=== PATIENT | female | born 1930 | race Caucasian/White ===

== ENCOUNTER 2019-09-09 11:05 | Inpatient (IN) | payer OTHER, MEDICAID ==
[~2019-09-09] VITALS: Ht 160 cm; Wt 67.8 kg
[2019-09-09 11:59] LABS: BASOPHILS % 0.4 % (0.0-2.0); EOSINOPHILS % 0.5 % (0.0-5.0); HEMOGLOBIN. 9.3 g/dL (12.0-16.0); LYMPHOCYTES % 8.2 % (20.0-50.0); MEAN CORPUSCULAR HEMOGLOBIN 29.8 pg (28.0-32.0); MEAN CORPUSCULAR VOLUME 92.4 fL (81.0-99.0); MONOCYTES % 6.9 % (2.0-8.0); PLATELET 453 x1000/uL (130-400); RED BLOOD CELL COUNT 3.14 mill/uL (4.2-5.4); RED CELL DISTRIBUTION WIDTH 19.5 % (11.6-14.6)
[2019-09-09 12:00] LABS: CLARITY URINE CLEAR (CLEAR); COLOR URINE YELLOW (YELLOW); KETONES URINE NEGATIVE (NEGATIVE); LEUKOCYTE ESTERASE URINE NEGATIVE (NEGATIVE); NITRITE URINE NEGATIVE (NEGATIVE); OCCULT BLOOD URINE NEGATIVE (NEGATIVE); PROTEIN URINE NEGATIVE (NEGATIVE); SPECIFIC GRAVITY URINE 1.029 (1.005-1.030); UROBILINOGEN URINE 0.2 E.U./dL (0.2-1.0)
[2019-09-09 12:04] LABS: CHLORIDE 107 mEq/L (98-107)
[2019-09-09 12:12] LABS: PHOSPHORUS 2.2 mg/dL (2.5-4.9)
[2019-09-09 12:15] LABS: BETA HYDROXYBUTYRATE 0.2 mMol/L (0.0-0.3)
[2019-09-09 12:19] LABS: BG BASE EXCESS -1.7 mmol/L (-2.0-2.0); BG CARBOXYHEMOGLOBIN 0.3 % (0.5-1.5); BG DEOXYHEMOGLOBIN 6.4 % (0.0-5.0); BG FRACTION INSPIRED OXYGEN 21; BG HCO3 ACT 20.7 mmol/L (22.0-26.0); BG METHEMOGLOBIN 0.1 % (0.0-1.5); BG OXYGEN SATURATION 93.6 % (92.0-98.5); BG OXYHEMOGLOBIN 93.2 % (94.0-97.0); BG PH 7.502 (7.350-7.450); BG PO2 68.3 mmHg (75.0-100.0); BG SAMPLE SITE RIGHT BRACHIAL; BG TOTAL HEMOGLOBIN 9.5 g/dL (12.0-18.0); BG VENT MODE ROOM AIR
[2019-09-09] MEDS ORDERED: INSULIN REGULAR (HUMULIN R) 300UNITS/3ML SUBCUT ONE (13:00)
[2019-09-09] MEDS ORDERED: SODIUM CHLORIDE 0.9% 1,000 ML IV ONE (13:00)
[2019-09-09] MEDS ORDERED: CEFTRIAXONE 1 G PREMIX 50 ML IV ONE (17:15)
[2019-09-09] MEDS ORDERED: ACETAMINOPHEN 325MG TABLET PO PRN ×2 (18:00)
[2019-09-09] MEDS ORDERED: DOCUSATE SODIUM 100MG CAPSULE PO PRN (18:00)
[2019-09-09] MEDS ORDERED: MAGNESIUM/ALUMINUM HYDROXIDE/SIMETHICONE 30ML UDC PO PRN (18:00)
[2019-09-09] MEDS ORDERED: NITROGLYCERIN 0.4MG TABLET SL SL PRN (18:00)
[2019-09-09] MEDS ORDERED: ZOLPIDEM TARTRATE 5MG TABLET PO PRN (18:00)
[2019-09-09] MEDS ORDERED: ENOXAPARIN 40MG/0.4ML SYR SUBCUT SCH (18:00)
[2019-09-09] MEDS ORDERED: LEVOFLOXACIN 500MG PREMIX 100 ML IV SCH (18:00)
[2019-09-09] MEDS ORDERED: ONDANSETRON HCL 4MG/2ML INJ IV PRN (18:00)
[2019-09-09] MEDS ORDERED: CLONIDINE 0.1MG TABLET PO PRN (18:00)
[2019-09-09] MEDS ORDERED: GUAIFENESIN 200MG/10ML SUGAR FREE UDC PO PRN (18:00)
[2019-09-09] MEDS ORDERED: IPRATROPIUM/ALBUTEROL 0.5-3(2.5)MG/3ML NEB ORI PRN (18:00)
[2019-09-09] MEDS ORDERED: KETOROLAC 15MG/ML VIAL IV PRN (18:00)
[2019-09-09] MEDS: SODIUM CHLORIDE 0.9% 1,000 ML IV SCH (18:45)
[2019-09-09 18:57] LABS: TOTAL IRON BINDING CAPACITY 193 ug/dL (250-450)
[2019-09-09 19:26] LABS: FOLIC ACID (FOLATE) SERUM >20 ng/mL ng/mL (>5.38)
[2019-09-09 19:42] LABS: VITAMIN B12 SERUM 394 pg/mL (211-911)
[2019-09-09] MEDS: ENOXAPARIN 30MG/0.3ML SYR SUBCUT SCH (20:00)
[2019-09-09] MEDS: INSULIN LISPRO 100 UNITS/ML SUBCUT SCH ×2 (20:10→21:00)
[2019-09-09] MEDS: ASCORBIC ACID 500 MG TABLET PO SCH (21:44)
[2019-09-09] MEDS: FAMOTIDINE 20MG TABLET PO SCH (21:44)
[2019-09-09] MEDS: BLOOD SUGAR DIAGNOSTIC STRIP TEST SCH (21:56)
[2019-09-09] MEDS ORDERED: SODIUM PHOS,M-BASIC-D-BASIC 10 MM in DEXT 5% WATER 246.6667 ML IV SCH (22:00)
[2019-09-09] MEDS ORDERED: INSULIN GLARGINE UD 100 UNITS/ML SYR SUBCUT SCH (22:00)
[2019-09-09] MEDS ORDERED: AZITHROMYCIN 500 MG in DEXT 5% WATER 250 ML IV SCH (22:00)
[2019-09-10] VITALS: BP 108/47
[2019-09-10] MEDS: SODIUM CHLORIDE 0.9% 1,000 ML IV SCH ×3 (03:51→22:15)
[2019-09-10 04:00] VITALS: BP 109/71
[2019-09-10] MEDS ORDERED: NEED-123 (04:26)
[2019-09-10] MEDS ORDERED: LISI10TA5 (04:26)
[2019-09-10] MEDS ORDERED: BLOO-1810 (04:26)
[2019-09-10] MEDS ORDERED: BLOO-158 (04:26)
[2019-09-10] MEDS ORDERED: POLY510P31 (04:26)
[2019-09-10] MEDS ORDERED: INSU100I24 (04:26)
[2019-09-10] MEDS ORDERED: MULT-9 (04:26)
[2019-09-10] MEDS ORDERED: ZINC1CAP2 (04:26)
[2019-09-10] MEDS ORDERED: LANC-1022 (04:26)
[2019-09-10 06:33] VITALS: BP 108/47
[2019-09-10 06:58] LABS: CHLORIDE 112 mEq/L (98-107)
[2019-09-10 07:04] LABS: PHOSPHORUS 2.8 mg/dL (2.5-4.9)
[2019-09-10 07:06] LABS: LDL CHOLESTEROL 63 mg/dL (5-100)
[2019-09-10 07:07] LABS: HDL CHOLESTEROL 37 mg/dL (40-59)
[2019-09-10] MEDS: BLOOD SUGAR DIAGNOSTIC STRIP TEST SCH ×4 (07:20→21:42)
[2019-09-10] MEDS: INSULIN LISPRO 100 UNITS/ML SUBCUT SCH ×4 (07:50→21:00)
[2019-09-10 08:00] VITALS: BP 130/66
[2019-09-10] MEDS: ASCORBIC ACID 500 MG TABLET PO SCH ×2 (08:39→21:41)
[2019-09-10] MEDS: ZINC SULFATE 220 MG ( 50 ) CAPSULE PO SCH (08:39)
[2019-09-10] MEDS: FAMOTIDINE 20MG TABLET PO SCH ×2 (08:39→21:41)
[2019-09-10] MEDS ORDERED: ASPIRIN 325MG EC TABLET PO SCH (09:00)
[2019-09-10 09:56] LABS: HEMATOCRIT. 25.6 % (36.0-48.0); HEMOGLOBIN. 8.1 g/dL (12.0-16.0); MEAN CORPUSCULAR HEMOGLOBIN 29.2 pg (28.0-32.0); MEAN CORPUSCULAR VOLUME 92.3 fL (81.0-99.0); PLATELET 423 x1000/uL (130-400); RED BLOOD CELL COUNT 2.77 mill/uL (4.2-5.4); RED CELL DISTRIBUTION WIDTH 19.4 % (11.6-14.6)
[2019-09-10] MEDS: ASPIRIN 81MG TABLET GT SCH (09:59)
[2019-09-10 14:13] LABS: NUCLEATED RED BLOOD CELLS 1 /100 WBC; PLATELET ESTIMATE INCREASED
[2019-09-10 14:58] LABS: *AMPHETAMINES SCREEN URINE NEGATIVE (NEGATIVE); *BARBITURATES SCREEN URINE NEGATIVE (NEGATIVE); *BENZODIAZEPINES SCREEN URINE NEGATIVE (NEGATIVE); *COCAINE SCREEN URINE NEGATIVE (NEGATIVE)
[2019-09-10 14:59] LABS: CANNABINOID URINE SCREEN NEGATIVE (NEGATIVE); METHADONE URINE SCREEN NEGATIVE (NEGATIVE); OPIATES URINE SCREEN NEGATIVE (NEGATIVE); PHENCYCLIDINE URINE SCREEN NEGATIVE (NEGATIVE)
[2019-09-10 16:00] VITALS: BP 107/59
[2019-09-10] MEDS ORDERED: CEFTRIAXONE 1 G PREMIX 50 ML IV SCH (17:00)
[2019-09-10] MEDS: DEXTROSE 50% WATER 50ML SYRINGE IV PRN (17:20)
[2019-09-10] MEDS: CEFTRIAXONE 1,000 MG in DEXTROSE 5% WATER 50 ML IV SCH (17:28)
[2019-09-10] MEDS ORDERED: LEVOFLOXACIN 250MG PREMIX 50 ML IV SCH (18:00)
[2019-09-10] MEDS ORDERED: AZITHROMYCIN 500 MG in DEXT 5% WATER 250 ML IV SCH (18:00)
[2019-09-10 20:00] VITALS: BP 109/58
[2019-09-10] MEDS: ENOXAPARIN 30MG/0.3ML SYR SUBCUT SCH (21:42)
[2019-09-10] MEDS ORDERED: INSULIN GLARGINE UD 100 UNITS/ML SYR SUBCUT NR (23:45)
[2019-09-11] VITALS (8 sets, daily range): BP systolic 109–174; BP diastolic 52–80
[2019-09-11] MEDS: DEXTROSE 50% WATER 50ML SYRINGE IV PRN ×3 (05:34→11:04)
[2019-09-11] MEDS: BLOOD SUGAR DIAGNOSTIC STRIP TEST SCH ×2 (07:16→21:00)
[2019-09-11] MEDS: INSULIN LISPRO 100 UNITS/ML SUBCUT SCH ×2 (07:16→21:00)
[2019-09-11] MEDS: ASCORBIC ACID 500 MG TABLET PO SCH ×2 (09:40→22:04)
[2019-09-11] MEDS: FAMOTIDINE 20MG TABLET PO SCH ×2 (09:41→22:04)
[2019-09-11] MEDS: ZINC SULFATE 220 MG ( 50 ) CAPSULE PO SCH (09:41)
[2019-09-11] MEDS: ASPIRIN 81MG TABLET GT SCH (09:41)
[2019-09-11] MEDS: SODIUM CHLORIDE 0.9% 1,000 ML IV SCH (09:44)
[2019-09-11] MEDS: CEFTRIAXONE 1,000 MG in DEXTROSE 5% WATER 50 ML IV SCH (17:42)
[2019-09-11] MEDS ORDERED: DEXTROSE 5% WATER 1,000 ML IV SCH (21:00)
[2019-09-11] MEDS ORDERED: INSULIN GLARGINE UD 100 UNITS/ML SYR SUBCUT SCH (22:00)
[2019-09-11] MEDS: ENOXAPARIN 30MG/0.3ML SYR SUBCUT SCH (22:05)
[2019-09-12] VITALS: BP 118/68
[2019-09-12 04:00] VITALS: BP 132/66
[2019-09-12] MEDS: INSULIN LISPRO 100 UNITS/ML SUBCUT SCH ×4 (06:49→21:18)
[2019-09-12] MEDS: BLOOD SUGAR DIAGNOSTIC STRIP TEST SCH ×4 (06:49→21:07)
[2019-09-12 08:00] VITALS: BP 109/50
[2019-09-12] MEDS: ASPIRIN 81MG TABLET GT SCH (08:29)
[2019-09-12] MEDS: FAMOTIDINE 20MG TABLET PO SCH ×2 (08:29→21:07)
[2019-09-12] MEDS: ZINC SULFATE 220 MG ( 50 ) CAPSULE PO SCH (08:29)
[2019-09-12] MEDS: AZITHROMYCIN 500 MG TABLET PO SCH (08:30)
[2019-09-12] MEDS: ASCORBIC ACID 500 MG TABLET PO SCH ×2 (08:30→21:07)
[2019-09-12 12:00] VITALS: BP 117/59
[2019-09-12 16:00] VITALS: BP 99/63
[2019-09-12 20:00] VITALS: BP 122/66
[2019-09-12] MEDS: ENOXAPARIN 30MG/0.3ML SYR SUBCUT SCH (21:07)
[2019-09-12] MEDS: INSULIN GLARGINE UD 100 UNITS/ML SYR SUBCUT SCH ×2 (21:18→21:19)
[2019-09-13] VITALS: BP 137/55
[2019-09-13 04:00] VITALS: BP 114/57
[2019-09-13] MEDS: BLOOD SUGAR DIAGNOSTIC STRIP TEST SCH ×3 (07:24→20:48)
[2019-09-13] MEDS: ZINC SULFATE 220 MG ( 50 ) CAPSULE PO SCH (09:00)
[2019-09-13] MEDS: ASCORBIC ACID 500 MG TABLET PO SCH ×2 (09:00→20:47)
[2019-09-13] MEDS: ASPIRIN 81MG TABLET GT SCH (09:00)
[2019-09-13] MEDS: AZITHROMYCIN 500 MG TABLET PO SCH (09:00)
[2019-09-13] MEDS: FAMOTIDINE 20MG TABLET PO SCH ×2 (09:01→20:47)
[2019-09-13] MEDS: INSULIN LISPRO 100 UNITS/ML SUBCUT SCH ×4 (09:08→21:53)
[2019-09-13 20:00] VITALS: BP 151/70
[2019-09-13] MEDS: ENOXAPARIN 30MG/0.3ML SYR SUBCUT SCH (20:47)
[2019-09-13] MEDS ORDERED: INSULIN GLARGINE UD 100 UNITS/ML SYR SUBCUT SCH (22:00)
[2019-09-13 22:56] VITALS: BP 151/70
[2019-09-20] MEDS ORDERED: FLUC100T GT (12:43)
[2019-09-20] MEDS ORDERED: CIPR-264 GT (12:43)
== END 2019-09-13 23:09 | disposition home health service (06) | DRG 871 ==
LOC: ER 11:17 → 6EST 17:54 → ENRESERV 20:16 → 6EST 09-10 00:11
PROVIDERS: ADMIT Internal Medicine; ATTEND Internal Medicine
DX: A41.9 Sepsis, unspecified organism (principal); J18.9 Pneumonia, unspecified organism; E43 Unspecified severe protein-calorie malnutrition; G92 Toxic encephalopathy; R65.20 Severe sepsis without septic shock; I10 Essential (primary) hypertension; E83.51 Hypocalcemia; E83.39 Other disorders of phosphorus metabolism; D63.8 Anemia in other chronic diseases classified elsewhere; E78.00 Pure hypercholesterolemia, unspecified; E11.65 Type 2 diabetes mellitus with hyperglycemia; F03.90 Unspecified dementia, unspecified severity, without behavioral disturbance, psychotic disturbance, mood disturbance, and anxiety; L89.150 Pressure ulcer of sacral region, unstageable
CPT/HCPCS: 36415; 36600; 71045; 80053; 80061; 80305; 81003; 82010; 82040; 82375; 82607; 82746; 82805; 82962; 83036; 83540; 83550; 83605; 83735; 84100; 84134; 84484; 85025; 93005; 93970; 97162; 97166; 99285; J0456; J0696; J1650; J1815; J1956; J3490; J7030; J7060; J7070